=== PATIENT | female | born 1980 | race Caucasian/White ===

== ENCOUNTER → 2016-12-17 | Outpatient (CLI) | payer OTHER ==
[2016-08-28 08:00] VITALS: BP 117/64
[~2016-12-17] MED LIST: FAMO20TA5 PO; LEVO75TA5 PO; METF10002 PO; MULT-208 PO; NORE1TAB27 PO
== END | disposition home or self-care (01) ==
LOC: SPEC 15:35
PROVIDERS: ATTEND Family Medicine
DX: R31.9 Hematuria, unspecified (principal)
CPT/HCPCS: 88112

== ENCOUNTER → 2018-01-19 | Outpatient (CLI) | payer OTHER ==
[2018-01-19] MEDS: GADOBUTROL 7.5 MMOL/7.5 ML VIAL IV (13:38)
== END | disposition home or self-care (01) ==
LOC: KCIC MRI 12:49
DX: R51 Headache (principal); J34.89 Other specified disorders of nose and nasal sinuses
CPT/HCPCS: 70553; A9585